=== PATIENT | male | born 1980 | race Caucasian/White ===

== ENCOUNTER 2023-01-08 08:34 | Emergency (ER) | payer SELFPAY ==
[2023-01-08 08:52] VITALS: BP 131/77; PULSE 77; RESP 18; TEMP 98.8; BMI 28.4
[2023-01-08] MEDS ORDERED: CARBAMIDE PEROXIDE 6.5% OTIC 15 ML BOTTLE AS ONE (09:50)
== END 2023-01-08 11:41 | disposition home or self-care (01) ==
LOC: JER 08:34
PROC: F09Z3XZ Cerumen Management Treatment using Cerumen Management Equipment (ICD-10-PCS; principal; 2023-01-08)
DX: H92.02 Otalgia, left ear (principal); H53.8 Other visual disturbances; H61.22 Impacted cerumen, left ear; R51.9 Headache, unspecified; R07.0 Pain in throat
CPT/HCPCS: 70450-TC; 99284-25